=== PATIENT | male | born 1990 | race Caucasian/White ===

== ENCOUNTER 2018-01-20 17:12 | Emergency (ER) | payer SELFPAY ==
[~2018-01-20] VITALS: Ht 167.6 cm; Wt 68.3 kg
[~2018-01-20 17:12] MED LIST: CLIN300C11 PO; HYDR-4226 PO; LEVO750T24 PO; NEOM10DR9 OT; OMEP-10 PO; PRD20T PO; SULF1TAB35 PO
--- NOTE | 2018-01-20 18:44 | Diagnostic Imaging Report ---
INDICATION: Trauma, left hand pain. FINDINGS: Four views of the left hand show an oblique fracture involving the proximal phalanx of the fourth digit. There is satisfactory alignment. Joints are not involved. There is a transverse lucency seen extending through the middle phalanx of the fifth digit only on the lateral view but this may represent a nondisplaced fracture at this site. The joint is not involved. IMPRESSION: There is fracture of the proximal phalanx of the fourth digit which is in satisfactory alignment. There is a probable nondisplaced fracture involving the middle phalanx of the fifth digit. Dictated by: Dictated on workstation # [id number]
[2018-01-20] MEDS ORDERED: TETANUS,DIPTH,PERTUSS P/F (BOOSTRIX) 0.5 ML VIAL IM STA (18:57)
[2018-01-20] MEDS ORDERED: morphine INJ 10 MG/ML 1ML (SYR OR VIAL) IM STA (18:57)
--- NOTE | 2018-01-20 19:04 | ED Upper Extremity ---
General Chief Complaint: Upper Extremity Stated Complaint: L HAND INJ, POSS BREAK Nursing Triage Note: Reports accidentally dropping a easton on the left hand. Nursing Sepsis Screen: No Definite Risk Source: patient, family Exam Limitations: no limitations History of Present Illness Date Seen by Provider: Jan 20, 2018 Time Seen by Provider: 19:04 Initial Comments 27-year-old male patient presents to the emergency department complains of left hand pain/finger pain. Patient reports dropping a easton on the left hand at 0400 today while changing a tire. Now reports pain, swelling, and bruising to the left hand and left fourth and fifth fingers. Onset: this morning Pain/Injury Location: left hand, left 4th finger, left 5th finger Method of Injury: direct blow Modifying Factors: Improves With Immobilization; Worse With Movement Allergies and Home Medications Allergies Coded Allergies: NKANo Known Allergies (Unverified Allergy, Mild, 08/02/08) Home Medications Clindamycin HCl 300 Mg Capsule, 300 MG PO TID, (Reported) Hydrocodone/Acetaminophen 1 Each Tablet, 1 EACH PO Q4H PRN for PAIN Do not fill unless Bactrim is also filled Prescribed by: CHANDU BULLOCK on 05/20/15 160 Hydrocodone/Acetaminophen 1 Each Tablet, 1 EACH PO Q4-6HR PRN for PAIN-MODERATE Prescribed by: ROMEL FERNANDO on 01/20/18 192 Sulfamethoxazole/Trimethoprim 1 Each Tablet, 1 EACH PO BID Prescribed by: CHANDU BULLOCK on 05/20/15 160 Patient Home Medication List Home Medication List Reviewed: Yes Review of Systems Constitutional: no symptoms reported Musculoskeletal: see HPI, joint pain, joint swelling Skin: change in color (ecchymosis left hand) Psychiatric/Neurological: Denies Numbness, Denies Paresthesia, Denies Tingling , Denies Weakness All Other Systems Reviewed Negative Unless Noted: Yes (Negative excepted noted.) Past Yhztigl-Muwtac-Vvyyhq Hx Past Med/Social Hx: Reviewed Nursing Past Med/Soc Hx Patient Social History Alcohol Use: Denies Use Recreational Drug Use: No Smoking Status: Current Everyday Smoker Type Used: Cigarettes Recent Foreign Travel: No Contact w/Someone Who Travel: No Recent Infectious Disease Expo: No Recent Hopitalizations: Yes Immunizations Up To Date Tetanus Booster (TDap): More than 5yrs Date of Influenza Vaccine: Mar 02, 2012 Past Medical History Surgeries: No Respiratory: No Cardiac: No Neurological: No Reproductive Disorders: No Genitourinary: No Gastrointestinal: Yes Crohns Disease Musculoskeletal: No Endocrine: No Cancer: No Psychosocial: No Integumentary: No Blood Disorders: No Family Medical History Reviewed Nursing Family Hx No Pertinent Family Hx Physical Exam Vital Signs Vital Signs - First Documented 01/20/18 18:14 Temp 97.2 Pulse 92 Resp 18 B/P (MAP) 126/71 (89) Pulse Ox 100 O2 Delivery Room Air Capillary Refill : Less Than 3 Seconds Height, Weight, BMI Height: 5'6" Weight: 150lbs. 8.0oz. [id number]; 24.21 BMI Method:Stated General Appearance: WD/WN, no apparent distress Cardiovascular: normal peripheral pulses, regular rate, rhythm, no murmur Respiratory: lungs clear, normal breath sounds, no respiratory distress, no accessory muscle use Shoulder: normal inspection, non-tender, no evidence of injury, normal ROM Elbow/Forearm: normal inspection, non-tender, no evidence of injury, normal ROM , Left Wrist: Yes normal inspection, Yes non-tender, Yes no evidence of injury, Yes normal ROM Hand: Left, bone tenderness (left 4th and fifth fingers), ecchymosis, limited ROM, soft tissue tenderness, swelling Neurologic/Tendon: normal sensation, normal motor functions, normal tendon functions, responds to pain, no evidence tendon injury Neurologic/Psychiatric: no motor/sensory deficits, alert, normal mood/affect, oriented x 3 Skin: normal color, warm/dry, ecchymosis (left hand, left 4th finger, and left 5th finger ecchymosis.) Procedures/Interventions Splinting and Joint Reduction : Location: left hand Pre-Proc Neuro Vasc Exam: normal Post-Proc Neuro Vasc Exam: normal Hand-Made Type: orthoglass Splint Application: Short Arm Progress/Results/Core Measures Results/Orders My Orders Orders - ROMEL FERNANDO Hand, Left, 3 Views (01/20/18 18:14) Morphine Injection (Morphine Injection (01/20/18 18:57) Dipht,Pertuss(Acell),Tet Adult (Boostrix (01/20/18 18:57) Vital Signs/I&O 01/20/18 18:14 Temp 97.2 Pulse 92 Resp 18 B/P (MAP) 126/71 (89) Pulse Ox 100 O2 Delivery Room Air Blood Pressure Mean: 89 Diagnostic Imaging Diagonstic Imaging: Xray Plain Films/CT/US/NM/MRI: hand Comments HAND, LEFT, 3 VIEWS INDICATION: Trauma, left hand pain. FINDINGS: Four views of the left hand show an oblique fracture involving the proximal phalanx of the fourth digit. There is satisfactory alignment. Joints are not involved. There is a transverse lucency seen extending through the middle phalanx of the fifth digit only on the lateral view but this may represent a nondisplaced fracture at this site. The joint is not involved. IMPRESSION: There is fracture of the proximal phalanx of the fourth digit which is in satisfactory alignment. There is a probable nondisplaced fracture involving the middle phalanx of the fifth digit. Dictated by: Dictated on workstation # [id number] Reviewed: Reviewed by Me (radiology report reviewed by me) Departure Impression Primary Impression: Fracture of phalanx of left little finger Qualified Codes: S62.657A - Nondisplaced fracture of middle phalanx of left little finger, initial encounter for closed fracture Additional Impression: Fracture of phalanx of left ring finger Qualified Codes: S62.645A - Nondisplaced fracture of proximal phalanx of left ring finger, initial encounter for closed fracture Disposition: 01 HOME, SELF-CARE Condition: Improved Departure-Patient Inst. Decision time for Depature: 19:27 Referrals: NO,LOCAL PHYSICIAN (PCP) Primary Care Physician JERARDO JUARES MD Patient Instructions: Finger Fracture (DC) Add. Discharge Instructions: All discharge instructions reviewed with patient and/or family. Voiced understanding. Medications as instructed. No ibuprofen or Aleve. Elevate the left hand on pillows. Ice pack for 20 minute intervals as needed for pain. You may remove the finger splints to shower. Shower with antibacterial soap. Pat dry. Apply a small amount of Triple Antibiotic ointment twice daily for 3 days to the abrasion on the finger. Reapply the finger splint and secured with tape. Follow-up with Dr. Juares as an outpatient for recheck within the next 7 days. Call for appointment time tomorrow morning. Return to the emergency department for worsened symptoms or any other concerns. Scripts Hydrocodone/Acetaminophen (Hydrocodone-Acetamin 5-325 mg) 1 Each Tablet 1 EACH PO Q4-6HR PRN for PAIN-MODERATE, #20 TAB 0 Refills Prov: ROMEL FERNANDO 01/20/18 Work/School Note: Work Release Form Date Seen in the Emergency Department: Jan 20, 2018 Return to Work: Jan 22, 2018 Other Restrictions Listed Below: No use of the left hand until released by Dr. Juares. Restrictions: No operating machinery/equipment or driving while using narcotics. ROMEL FERNANDO Jan 20, 2018 19:04
[2018-01-20] MEDS ORDERED: HYDR-3812 PO (19:28)
[2018-01-20 20:05] VITALS: BP 110/80
== END 2018-01-20 20:09 | disposition home or self-care (01) ==
LOC: EDUNIT# 17:12 → ER 17:13
DX: S62.657A Nondisplaced fracture of middle phalanx of left little finger, initial encounter for closed fracture (principal); S62.645A Nondisplaced fracture of proximal phalanx of left ring finger, initial encounter for closed fracture; F17.210 Nicotine dependence, cigarettes, uncomplicated; Z87.19 Personal history of other diseases of the digestive system; Z23 Encounter for immunization; W22.09XA Striking against other stationary object, initial encounter
CPT/HCPCS: 73130; 90471; 90715; 96372